=== PATIENT | male | born 1975 | race Two or more races ===

== ENCOUNTER → 2019-03-12 | Emergency (ER) | payer SELFPAY ==
[~2019-03-12] VITALS: Ht 167.6 cm; Wt 80.7 kg
[2019-03-12 10:52] VITALS: BP 162/92
--- NOTE | 2019-03-12 11:00 | NUR ---
SEEN AND EXAMINED BY .
--- NOTE | 2019-03-12 11:18 | NUR ---
Patient discharged to home in stable condition. Written and verbal after care instructions given. Patient verbalizes understanding of instruction.
--- NOTE | 2019-03-12 11:19 | NUR ---
UNABLE TO DEPART.
== END | disposition home or self-care (01) ==
LOC: ER 10:41
DX: L23.7 Allergic contact dermatitis due to plants, except food (principal); F17.200 Nicotine dependence, unspecified, uncomplicated